=== PATIENT | female | born 1975 | race Caucasian/White ===

== ENCOUNTER 2017-01-01 20:33 | Emergency (ER) | payer OTHER ==
[~2017-01-01] VITALS: Ht 175.3 cm; Wt 96.1 kg
[~2017-01-01 20:33] MED LIST: ADDERALL XR 2525 MG PO; ADDERALL20 MG PO; AMOX TR-K CLV1 EAC4 PO; AZITHROMYCIN250 MG PO; BENADRYL25 MG PO; BENTYL20 MG PO; CLARITHROMYCIN500 MG PO; ENDOCET 7.5-321 EACH PO; FLEXERIL10 MG PO; FUTURO RESTORI1 EACH MC; GABAPENTIN300 MG PO; HYDROCODON-ACE1 EAC7 PO; LEVAQUIN500 MG PO; LEXAPRO10 MG PO; LOMOTIL TABLET1 EACH PO; LORCET 5-325 M1 EACH PO; LYRICA75 MG PO; METHADONE5 MG PO; MOBIC7.5 MG PO; MORPHINE SULFAT15 M1 PO; MOTRIN800 MG PO; MS CONTIN,ORAMO15 M1 PO; NAPROSYN500 MG PO; NEURONTIN300 MG PO; NEURONTIN600 MG PO; OXAYDO5 MG PO; OXECTA7.5 MG PO; PAXIL20 MG PO; PEN-VEE K,VEET500 MG PO; PREDNISONE10 MG PO; PROMETHAZINE HC25 M1 PO; PROZAC20 MG PO; SERTRALINE HCL100 MG PO; SERTRALINE HCL50 MG PO; VALIUM10 MG PO; ZOFRAN4 MG PO
[2017-01-01] MEDS ORDERED: SUMATRIPTAN SUC25 MG PO (21:10)
[2017-01-01] MEDS ORDERED: INDOCIN50 MG PO (22:24)
[2017-01-01 22:34] VITALS: BP 135/81
== END 2017-01-01 22:35 | disposition home or self-care (01) ==
LOC: EME 20:33
DX: M79.602 Pain in left arm (principal); G89.18 Other acute postprocedural pain; F43.10 Post-traumatic stress disorder, unspecified; G43.909 Migraine, unspecified, not intractable, without status migrainosus; F41.9 Anxiety disorder, unspecified; Z91.040 Latex allergy status; Z88.8 Allergy status to other drugs, medicaments and biological substances; Z85.830 Personal history of malignant neoplasm of bone
CPT/HCPCS: 93971; 99281; 99283; J3010

== ENCOUNTER 2017-06-23 13:12 | Emergency (ER) | payer OTHER ==
[~2017-06-23] VITALS: Ht 160 cm; Wt 87.2 kg
[~2017-06-23 13:12] MED LIST changes: +INDOCIN50 MG PO; +SUMATRIPTAN SUC25 MG PO
[2017-06-23 13:33] VITALS: BP 120/84
== END 2017-06-23 14:00 | disposition left against medical advice (07) ==
LOC: EME 13:12
DX: M79.89 Other specified soft tissue disorders (principal); Z53.21 Procedure and treatment not carried out due to patient leaving prior to being seen by health care provider